=== PATIENT | male | born 1980 | race African-American/Black ===

== ENCOUNTER 2024-03-27 11:24 | Emergency (ER) | payer MEDICARE, MEDICAID ==
[~2024-03-27] VITALS: Ht 172.7 cm; Wt 68.0 kg
[2024-03-27 11:27] VITALS: TEMP 98.1; O2SAT 100; O2SAT 98
[2024-03-27 11:47] VITALS: BP 144/82; PULSE 102; RESP 19
[2024-03-27] MEDS: ONDANSETRON HCL 4MG/2ML INJ IV STA (11:47)
[2024-03-27] MEDS: KETOROLAC 30MG/ML VIAL IV STA (11:47)
[2024-03-27] MEDS: SODIUM CHLORIDE 0.9% 1,000 ML IV ONE (12:00)
[2024-03-27 12:24] LABS: BASOPHILS % 0.6 % (0.0-2.0); HEMOGLOBIN. 14.2 g/dL (14.0-18.0); LYMPHOCYTES % 18.5 % (20.0-50.0); MEAN CORPUSCULAR HEMOGLOBIN 30.1 pg (28.0-32.0); MEAN CORPUSCULAR HGB CONC 33.7 g/dL (31.0-37.0); MEAN CORPUSCULAR VOLUME 89.4 fL (80.0-94.0); MEAN PLATELET VOLUME 7.9 fl (7.4-10.4); MONOCYTES % 5.1 % (2.0-8.0); NEUTROPHILS % 75.8 % (40.0-76.0); PLATELET 308 x1000/uL (130-400); RED CELL DISTRIBUTION WIDTH 13.6 % (11.6-14.6); WHITE BLOOD COUNT 6.3 x1000/uL (4.5-11.0)
[2024-03-27 12:30] LABS: CHLORIDE 102 mEq/L (98-107); POTASSIUM 4.2 mEq/L (3.5-5.1); SODIUM 137 mEq/L (136-145)
[2024-03-27 12:31] LABS: CALCIUM 9.9 mg/dL (8.7-10.4); CARBON DIOXIDE 26 mEq/L (21-32)
[2024-03-27 12:36] LABS: CREATININE 1.1 mg/dL (0.6-1.3); GLUCOSE 138 mg/dL (70-105); UREA NITROGEN BLOOD 12 mg/dL (9-23)
[2024-03-27] MEDS ORDERED: ONDA-239 PO (14:06)
[2024-03-27] MEDS ORDERED: DICYCLOMINE HCL 10MG CAPSULE PO NR (14:15)
[2024-03-27] MEDS: FAMOTIDINE 20MG TABLET PO ONE (15:06)
[2024-03-27] MEDS: MAGNESIUM/ALUMINUM HYDROXIDE/SIMETHICONE 30ML UDC PO ONE (15:06)
[2024-03-27] MEDS: DICYCLOMINE 10 MG/5 ML ORAL SYR PO ONE (15:06)
== END 2024-03-27 15:25 | disposition home or self-care (01) ==
LOC: ER 11:24
DX: K52.9 Noninfective gastroenteritis and colitis, unspecified (principal); I10 Essential (primary) hypertension; J45.909 Unspecified asthma, uncomplicated; Z88.5 Allergy status to narcotic agent; Z98.890 Other specified postprocedural states
CPT/HCPCS: 99285; 74176; 96374; 96361; 96375; 80048; 83690; 85025; 36415; J1885; J2405; J7030